=== PATIENT | male | born 1975 | race Caucasian/White ===

== ENCOUNTER 2018-11-03 21:46 | Emergency (ER) | payer SELFPAY, MEDICAID | END 2018-11-04 02:05 | disposition left against medical advice (07) | LOC: FTE 21:46 | DX: Z53.21 Procedure and treatment not carried out due to patient leaving prior to being seen by health care provider (principal) ==

== ENCOUNTER 2018-11-04 05:01 | Emergency (ER) | payer MEDICAID | END 2018-11-04 06:00 | disposition home or self-care (01) | LOC: FTE 05:01 | DX: J40 Bronchitis, not specified as acute or chronic (principal) | CPT/HCPCS: 99283; Z7502 ==

== ENCOUNTER 2019-06-19 12:41 | Emergency (ER) | payer MEDICAID | END 2019-06-19 14:57 | disposition home or self-care (01) | LOC: FTE 12:41 | DX: S60.222A Contusion of left hand, initial encounter (principal); W20.8XXA Other cause of strike by thrown, projected or falling object, initial encounter; Y92.810 Car as the place of occurrence of the external cause | CPT/HCPCS: 29125; 73130-LT; 99283-25 ==